=== PATIENT | female | born 1995 | race Caucasian/White ===

== ENCOUNTER → 2023-09-01 09:58 | Outpatient (REF) | payer OTHER, SELFPAY | LOC: DHVS 09:58 | PROVIDERS: ATTENDING PHYSICIAN Surgery Vascular Surgery | DX: I74.5 Embolism and thrombosis of iliac artery (principal) | CPT/HCPCS: 93922 ==

== ENCOUNTER → 2024-09-06 10:05 | Outpatient (REF) | payer OTHER, SELFPAY | LOC: DHVS 10:05 | PROVIDERS: ATTENDING PHYSICIAN Registered Nurse | DX: I74.5 Embolism and thrombosis of iliac artery (principal) | CPT/HCPCS: 93922; 93925 ==